=== PATIENT | female | born 1940 | race Caucasian/White ===

== ENCOUNTER → 2016-12-03 | Outpatient (CLI) | payer MEDICARE, OTHER ==
[~2016-12-03] MED LIST: ASPI1TAB24 PO; COUM2.5T11 PO; ESTR1TAB PO; GABA-282 PO; LOSA100T36 PO; MELO15TA4 PO; MOME50SP; MULT1TAB10 PO; PAME25CA PO; PANT40TA2 PO; PERC5TAB6 PO; SERT50TA PO; calcium OR; fish oil OR; proventil INH; restasis OR; vitamin B12 OR; vitamin c OR; vitamin d OR
== END ==
LOC: M WUC 13:57
PROVIDERS: ATTEND Physician Assistant
DX: R05 Cough (principal); R07.89 Other chest pain

== ENCOUNTER → 2017-04-03 | Outpatient (REF) | payer MEDICARE, OTHER ==
[~2017-04-03] MED LIST changes: +ASPI-161 PO; -ASPI1TAB24 PO; -COUM2.5T11 PO; +COUM2.5T17 PO; +PERC5TAB12 PO; -PERC5TAB6 PO
[2017-04-03 11:50] LABS: ALBUMIN 3.3 GM/DL (3.2-5.2); ALBUMIN/GLOBULIN RATIO 1.18 (1.00-1.93); ALKALINE PHOSPHATASE 101 U/L (45-117); ALT/SGPT 26 U/L (12-78); ANION GAP 8 MEQ/L (8-16); AST/SGOT 15 U/L (15-37); BILIRUBIN,TOTAL 0.2 MG/DL (0.2-1.0); BLOOD UREA NITROGEN 22 MG/DL (7-18); CALCIUM LEVEL 8.2 MG/DL (8.8-10.2); CARBON DIOXIDE LEVEL 28 MEQ/L (21-32); CHLORIDE LEVEL 105 MEQ/L (98-107); CHOLESTEROL LEVEL 163 MG/DL (<200); CREATININE FOR GFR 0.82 MG/DL (0.55-1.02); GLOMERULAR FILTRATION RATE > 60.0 (>39); GLUCOSE, FASTING 88 MG/DL (83-110); POTASSIUM SERUM 3.4 MEQ/L (3.5-5.1); SODIUM LEVEL 141 MEQ/L (136-145); TOTAL PROTEIN 6.1 GM/DL (6.4-8.2); TRIGLYCERIDES LEVEL 41 MG/DL (<150)
== END ==
LOC: M SFHCPLAZ 07:57
PROVIDERS: ATTEND Internal Medicine
DX: I10 Essential (primary) hypertension (principal); E78.00 Pure hypercholesterolemia, unspecified; R53.83 Other fatigue

== ENCOUNTER 2017-08-14 10:27 | Day surgery (SDC) | payer MEDICARE, OTHER ==
[~2017-08-14 10:27] MED LIST changes: -ASPI-161 PO; -COUM2.5T17 PO; -ESTR1TAB PO; -GABA-282 PO; -LOSA100T36 PO; -MELO15TA4 PO; +MIDAZOLAM INJ 2 MG/2 ML VIAL (J2250) As Ordered; -MOME50SP; -MULT1TAB10 PO; -PAME25CA PO; -PANT40TA2 PO; -PERC5TAB12 PO; +PHENYLEPHRINE 2.5% OPHTH SOL 2ML OD; +PHENYLEPHRINE HCL 10 % OPHTH. SOL 5ML OD; -SERT50TA PO; -calcium OR; +fentaNYL 100 MCG/2 ML INJECTION (J3010) As Ordered; -fish oil OR; -proventil INH; -restasis OR; -vitamin B12 OR; -vitamin c OR; -vitamin d OR
[2017-08-14] MEDS ORDERED: LIDOCAINE 3.5 % 1ML OPHTH TOPICAL GEL As Ordered (11:36)
[2017-08-14] MEDS ORDERED: PHENYLEPHRINE HCL 10 % OPHTH. SOL 5ML OD (12:00)
[2017-08-14] MEDS: CYCLOPENTOLATE 2% OPHTH SOLN 2ML BTL OD (12:02)
[2017-08-14] MEDS: OFLOXACIN 0.3 % (OCUFLOX) OPTH SOL 5ML OD (12:02)
[2017-08-14] MEDS: TROPICAMIDE 1% OPHTH SOLN 2ML OD (12:02)
[2017-08-14] MEDS: PHENYLEPHRINE 2.5% OPHTH SOL 2ML OD (12:03)
[2017-08-14] MEDS: LIDOCAINE 3.5 % 1ML OPHTH TOPICAL GEL OU (12:03)
[2017-08-14] MEDS: POVIDONE-IODINE 5% OPHTH PREP SOL 30ML As Ordered (13:04)
[2017-08-14] MEDS: BSS with VANC/TOB/EPI for EYE CASES IR (13:06)
[2017-08-14] MEDS: TRIAMCINOLONE PRES FR 40 MG/ML 1ML(TRIESENCE)(OR EYE ONLY)(J3300 PER 1MG) As Ordered (13:10)
[2017-08-14] MEDS: HEALON DUET (HEALON 10MG/ML 0.55ML & HEALON ENDOCOAT 30MG/ML 0.85ML) As Ordered (13:10)
[2017-08-14] MEDS: LIDOCAINE 1% SDV 5 ML VIAL As Ordered (13:11)
[2017-08-14] MEDS: MOXIFLOXACIN IN BSS 0.25MG/0.25ML INTRACAMERAL INJ (OR EYE ONLY)(J2280) As Ordered (13:11)
== END 2017-08-14 13:52 | disposition home or self-care (01) ==
LOC: M SDC 10:27
DX: H25.11 Age-related nuclear cataract, right eye (principal); I10 Essential (primary) hypertension; M79.7 Fibromyalgia; E78.00 Pure hypercholesterolemia, unspecified; M19.90 Unspecified osteoarthritis, unspecified site; R73.01 Impaired fasting glucose; M20.001 Unspecified deformity of right finger(s); K21.9 Gastro-esophageal reflux disease without esophagitis; R60.0 Localized edema; F41.9 Anxiety disorder, unspecified; G43.909 Migraine, unspecified, not intractable, without status migrainosus; J45.909 Unspecified asthma, uncomplicated; Z88.4 Allergy status to anesthetic agent; Z91.013 Allergy to seafood; Z91.048 Other nonmedicinal substance allergy status; Z79.899 Other long term (current) drug therapy; Z79.82 Long term (current) use of aspirin; Z86.010 Personal history of colon polyps; Z90.710 Acquired absence of both cervix and uterus; Z96.652 Presence of left artificial knee joint
CPT/HCPCS: 66984

== ENCOUNTER 2017-08-21 08:20 | Day surgery (SDC) | payer MEDICARE, OTHER ==
[~2017-08-21 08:20] MED LIST changes: +ACETAMINOPHEN 325 MG TAB PO; -MIDAZOLAM INJ 2 MG/2 ML VIAL (J2250) As Ordered; -PHENYLEPHRINE 2.5% OPHTH SOL 2ML OD; -PHENYLEPHRINE HCL 10 % OPHTH. SOL 5ML OD; +PHENYLEPHRINE HCL 10 % OPHTH. SOL 5ML XX; -fentaNYL 100 MCG/2 ML INJECTION (J3010) As Ordered
[2017-08-21] MEDS ORDERED: LIDOCAINE 1% MDV 20ML VIAL SQ (08:30)
[2017-08-21] MEDS: PHENYLEPHRINE 2.5% OPHTH SOL 2ML XX (08:58)
[2017-08-21] MEDS: LIDOCAINE 3.5 % 1ML OPHTH TOPICAL GEL OU (08:58)
[2017-08-21] MEDS: TROPICAMIDE 1% OPHTH SOLN 2ML XX (08:58)
[2017-08-21] MEDS: CYCLOPENTOLATE 2% OPHTH SOLN 2ML BTL XX (08:58)
[2017-08-21] MEDS: OFLOXACIN 0.3 % (OCUFLOX) OPTH SOL 5ML XX (08:59)
[2017-08-21] MEDS: TRIAMCINOLONE PRES FR 40 MG/ML 1ML(TRIESENCE)(OR EYE ONLY)(J3300 PER 1MG) As Ordered (10:07)
[2017-08-21] MEDS: MOXIFLOXACIN IN BSS 0.25MG/0.25ML INTRACAMERAL INJ (OR EYE ONLY)(J2280) As Ordered (10:08)
[2017-08-21] MEDS: BSS with VANC/TOB/EPI for EYE CASES IR (10:08)
[2017-08-21] MEDS: LIDOCAINE 1% SDV 5 ML VIAL As Ordered ×2 (10:08)
[2017-08-21] MEDS: POVIDONE-IODINE 5% OPHTH PREP SOL 30ML As Ordered (10:08)
[2017-08-21] MEDS: HEALON DUET (HEALON 10MG/ML 0.55ML & HEALON ENDOCOAT 30MG/ML 0.85ML) As Ordered (10:08)
[2017-08-21] MEDS ORDERED: MIDAZOLAM INJ 2 MG/2 ML VIAL (J2250) As Ordered (10:24)
[2017-08-21] MEDS ORDERED: fentaNYL 100 MCG/2 ML INJECTION (J3010) As Ordered (10:24)
[2017-08-21] MEDS: AcetaZOLAMIDE 500 MG ER CAP PO (10:40)
[2017-08-21] MEDS ORDERED: TRIMETHOBENZAMIDE 300 MG CAP PO (10:45)
[2017-08-21] MEDS ORDERED: ONDANSETRON 4MG/2ML VIAL (J2405) IV (10:45)
== END 2017-08-21 10:56 | disposition home or self-care (01) ==
LOC: M SDC 08:20
DX: H26.9 Unspecified cataract (principal); I10 Essential (primary) hypertension; M79.7 Fibromyalgia; E78.00 Pure hypercholesterolemia, unspecified; M15.0 Primary generalized (osteo)arthritis; K21.9 Gastro-esophageal reflux disease without esophagitis; R60.0 Localized edema; F41.9 Anxiety disorder, unspecified; G43.819 Other migraine, intractable, without status migrainosus; J45.909 Unspecified asthma, uncomplicated; Z88.4 Allergy status to anesthetic agent; Z91.013 Allergy to seafood; Z91.018 Allergy to other foods; Z79.899 Other long term (current) drug therapy; Z79.82 Long term (current) use of aspirin; Z90.710 Acquired absence of both cervix and uterus; Z96.652 Presence of left artificial knee joint
CPT/HCPCS: 66984

== ENCOUNTER → 2018-02-24 | Outpatient (CLI) | payer MEDICARE, OTHER | LOC: M RAD 10:16 | DX: Z12.31 Encounter for screening mammogram for malignant neoplasm of breast (principal) | CPT/HCPCS: 77067 ==

== ENCOUNTER → 2018-03-06 | Outpatient (REF) | payer MEDICARE, OTHER ==
[2018-03-06 16:27] LABS: CREATININE FOR GFR 0.79 MG/DL (0.55-1.30); GLOMERULAR FILTRATION RATE > 60.0 (>39)
== END ==
LOC: M LABDRAWP 15:39
DX: M51.27 Other intervertebral disc displacement, lumbosacral region (principal); M54.16 Radiculopathy, lumbar region; M46.1 Sacroiliitis, not elsewhere classified; M79.1 Myalgia; M96.1 Postlaminectomy syndrome, not elsewhere classified; M51.36 Other intervertebral disc degeneration, lumbar region
CPT/HCPCS: 82565

== ENCOUNTER → 2018-03-12 | Outpatient (REF) | payer MEDICARE, OTHER ==
[2018-03-12 15:41] LABS: APPEARANCE, URINE CLOUDY (CLEAR); BACTERIA, URINE AUTO 2+ (NEGATIVE); BILIRUBIN, URINE AUTO NEGATIVE (NEGATIVE); BLOOD, URINE BLOOD 2+ (NEGATIVE); COLOR, URINE YELLOW (YELLOW); GLUCOSE, URINE (UA) AUTO NEGATIVE (NEGATIVE); KETONE, URINE AUTO NEGATIVE (NEGATIVE); LEUKOCYTE ESTERASE, URINE AUTO 2+ (NEGATIVE); NITRITE, URINE AUTO NEGATIVE (NEGATIVE); PROTEIN, URINE AUTO NEGATIVE (NEGATIVE); RBC, URINE AUTO TNTC /HPF (0-3); SQUAMOUS EPITHELIAL CELL UR AU 0 /HPF (0-6); UROBILINOGEN, URINE AUTO 0.2 mg/dL (0.0-2.0); WBC, URINE AUTO TNTC /HPF (0-3); YEAST LIKE CELL URINE AUTO SMALL
== END ==
LOC: M SFHCPLAZ 10:50
DX: R30.0 Dysuria (principal)
CPT/HCPCS: 81001

== ENCOUNTER → 2018-04-01 | Outpatient (REF) | payer MEDICARE, OTHER ==
[2018-04-01 12:00] LABS: HEMATOCRIT 38.7 % (36.0-47.0); HEMOGLOBIN 12.2 g/dl (12.0-15.5); MEAN CORPUSCULAR HEMOGLOBIN 28.6 pg (27.0-33.0); MEAN CORPUSCULAR HGB CONC 31.5 g/dl (32.0-36.5); MEAN CORPUSCULAR VOLUME 90.6 fl (80.0-96.0); PLATELET COUNT, AUTOMATED 270 10^3/uL (150-450); RED BLOOD COUNT 4.27 10^6/uL (4.00-5.40); RED CELL DISTRIBUTION WIDTH 13.9 % (11.5-14.5); WHITE BLOOD COUNT 7.5 10^3/uL (4.0-10.0)
[2018-04-01 12:46] LABS: ALBUMIN 3.3 GM/DL (3.2-5.2); ALBUMIN/GLOBULIN RATIO 0.97 (1.00-1.93); ALKALINE PHOSPHATASE 107 U/L (45-117); ALT/SGPT 22 U/L (12-78); ANION GAP 9 MEQ/L (8-16); AST/SGOT 14 U/L (7-37); BILIRUBIN,TOTAL 0.4 MG/DL (0.2-1.0); BLOOD UREA NITROGEN 25 MG/DL (7-18); CALCIUM LEVEL 8.4 MG/DL (8.8-10.2); CARBON DIOXIDE LEVEL 28 MEQ/L (21-32); CHLORIDE LEVEL 102 MEQ/L (98-107); CHOLESTEROL LEVEL 201 MG/DL (<200); CREATININE FOR GFR 0.87 MG/DL (0.55-1.30); GLOMERULAR FILTRATION RATE > 60.0 (>39); GLUCOSE, FASTING 80 MG/DL (70-100); HDL CHOLESTEROL 124 MG/DL (>40); LDL CHOLESTEROL 68 MG/DL (<100); NON-HDL-C 77 MG/DL; POTASSIUM SERUM 4.2 MEQ/L (3.5-5.1); SODIUM LEVEL 139 MEQ/L (136-145); TOTAL PROTEIN 6.7 GM/DL (6.4-8.2); TRIGLYCERIDES LEVEL 45 MG/DL (<150)
== END ==
LOC: M SFHCPLAZ 08:14
DX: J30.9 Allergic rhinitis, unspecified (principal); I10 Essential (primary) hypertension; E78.00 Pure hypercholesterolemia, unspecified
CPT/HCPCS: 83735

== ENCOUNTER → 2018-04-09 | Outpatient (REF) | payer MEDICARE, OTHER ==
[2018-04-09 14:02] LABS: FOLATE > 24.0 NG/ML
[2018-04-09 14:32] LABS: AMORPHOUS SEDIMENT MODERATE (NEGATIVE); APPEARANCE, URINE TURBID (CLEAR); BACTERIA, URINE AUTO 3+ (NEGATIVE); BILIRUBIN, URINE AUTO NEGATIVE (NEGATIVE); BLOOD, URINE BLOOD 1+ (NEGATIVE); COLOR, URINE YELLOW (YELLOW); GLUCOSE, URINE (UA) AUTO NEGATIVE (NEGATIVE); KETONE, URINE AUTO NEGATIVE (NEGATIVE); LEUKOCYTE ESTERASE, URINE AUTO 3+ (NEGATIVE); NITRITE, URINE AUTO NEGATIVE (NEGATIVE); PROTEIN, URINE AUTO 1+ mg/dL (NEGATIVE); RBC, URINE AUTO 14 /HPF (0-3); SPECIFIC GRAVITY URINE AUTO 1.013 (1.002-1.035); SQUAMOUS EPITHELIAL CELL UR AU 9 /HPF (0-6); UROBILINOGEN, URINE AUTO 0.2 mg/dL (0.0-2.0); WBC, URINE AUTO TNTC /HPF (0-3)
== END ==
LOC: M SFHCPLAZ 11:03
DX: G62.9 Polyneuropathy, unspecified (principal); N39.0 Urinary tract infection, site not specified; Z23 Encounter for immunization
CPT/HCPCS: 82746

== ENCOUNTER → 2018-06-19 | Outpatient (REF) | payer MEDICARE, OTHER ==
[~2018-06-19] MED LIST changes: -ACETAMINOPHEN 325 MG TAB PO; +ASPI-161 PO; +COUM2.5T17 PO; +ESTR1TAB PO; +FLUTISP; +GABA-843 PO; +GABA600T4 PO; +LOSA100T50 PO; +LOSA100T8 PO; +MELO15TA28 PO; +MOME50SP; +MULT1TAB10 PO; +PAME25CA PO; +PANT40TA3 PO; +PERC5TAB12 PO; -PHENYLEPHRINE HCL 10 % OPHTH. SOL 5ML XX; +REST0.05 OU; +RETA0.5S OU; +SERT50TA PO; +TYLETAB15 PO; +calcium OR; +fish oil OR; +proventil INH; +restasis OR; +vitamin B12 OR; +vitamin c OR; +vitamin d OR
[2018-06-19 18:55] LABS: BASO % 0.2 % (0.0-1.0); EOS # 0.2 10^3/uL (0.0-0.50); EOS % 1.2 % (0.0-3.0); HEMATOCRIT 40.7 % (36.0-47.0); HEMOGLOBIN 13.5 g/dl (12.0-15.5); LYMPH # 1.5 10^3/uL (1.5-4.5); LYMPH % 9.5 % (24.0-44.0); MEAN CORPUSCULAR HEMOGLOBIN 28.7 pg (27.0-33.0); MEAN CORPUSCULAR HGB CONC 33.2 g/dl (32.0-36.5); MEAN CORPUSCULAR VOLUME 86.6 fl (80.0-96.0); MONO % 6.7 % (0.0-5.0); NEUTROPHILS # 12.5 10^3/uL (1.8-7.7); NEUTROPHILS % 82.1 % (36.0-66.0); PLATELET COUNT, AUTOMATED 382 10^3/uL (150-450); WHITE BLOOD COUNT 15.3 10^3/uL (4.0-10.0)
[2018-06-19 19:32] LABS: ALT/SGPT 45 U/L (12-78); BILIRUBIN,TOTAL 0.4 MG/DL (0.2-1.0); BLOOD UREA NITROGEN 41 MG/DL (7-18); CALCIUM LEVEL 8.6 MG/DL (8.8-10.2); CARBON DIOXIDE LEVEL 27 MEQ/L (21-32); CHLORIDE LEVEL 99 MEQ/L (98-107); CREATININE FOR GFR 0.94 MG/DL (0.55-1.30); GLOMERULAR FILTRATION RATE > 60.0 (>39); GLUCOSE, FASTING 80 MG/DL (70-100); POTASSIUM SERUM 3.1 MEQ/L (3.5-5.1); SODIUM LEVEL 140 MEQ/L (136-145); TOTAL PROTEIN 6.9 GM/DL (6.4-8.2)
== END ==
LOC: M SFHCPLAZ 16:07
PROVIDERS: ATTEND Physician Assistant Medical
DX: E86.0 Dehydration (principal)
CPT/HCPCS: 36415; 80053; 85025; 86140; G0463

== ENCOUNTER → 2018-06-20 | Outpatient (REF) | payer MEDICARE, OTHER | LOC: M SFHCPLAZ 16:11 | PROVIDERS: ATTEND Physician Assistant Medical | DX: E86.0 Dehydration (principal) ==

== ENCOUNTER → 2018-07-04 | Outpatient (REF) | payer MEDICARE, OTHER ==
[2018-07-04 17:16] LABS: BASO % 0.2 % (0.0-1.0); EOS # 0.1 10^3/uL (0.0-0.50); EOS % 0.9 % (0.0-3.0); HEMATOCRIT 37.6 % (36.0-47.0); HEMOGLOBIN 12.3 g/dl (12.0-15.5); LYMPH # 1.1 10^3/uL (1.5-4.5); LYMPH % 7.5 % (24.0-44.0); MEAN CORPUSCULAR HEMOGLOBIN 29.1 pg (27.0-33.0); MEAN CORPUSCULAR HGB CONC 32.7 g/dl (32.0-36.5); MEAN CORPUSCULAR VOLUME 88.9 fl (80.0-96.0); MONO % 6.9 % (0.0-5.0); NEUTROPHILS # 12.2 10^3/uL (1.8-7.7); NEUTROPHILS % 84.2 % (36.0-66.0); PLATELET COUNT, AUTOMATED 325 10^3/uL (150-450); RED BLOOD COUNT 4.23 10^6/uL (4.00-5.40); WHITE BLOOD COUNT 14.4 10^3/uL (4.0-10.0)
[2018-07-04 17:25] LABS: BLOOD UREA NITROGEN 22 MG/DL (7-18); CALCIUM LEVEL 8.8 MG/DL (8.8-10.2); CARBON DIOXIDE LEVEL 29 MEQ/L (21-32); CHLORIDE LEVEL 103 MEQ/L (98-107); CREATININE FOR GFR 1.12 MG/DL (0.55-1.30); GLOMERULAR FILTRATION RATE 50.4 (>39); GLUCOSE, FASTING 97 MG/DL (70-100); POTASSIUM SERUM 3.1 MEQ/L (3.5-5.1); RHEUMATOID FACTOR QUANT < 10.0 IU/ML (<15.0); SODIUM LEVEL 140 MEQ/L (136-145); THYROID STIMULATING HORMONE 0.515 uIU/ML (0.358-3.740)
[2018-07-04 17:50] LABS: ERYTHROCYTE SEDIMENTATION RATE 46 mm/hr (0-30)
== END ==
LOC: M SFHCPLAZ 15:32
PROVIDERS: ATTEND Internal Medicine
DX: I10 Essential (primary) hypertension (principal); R79.82 Elevated C-reactive protein (CRP); R53.83 Other fatigue; Z87.898 Personal history of other specified conditions
CPT/HCPCS: 36415; 80048; 84443; 85025; 85652; 86140; 86200; 86431; G0463

== ENCOUNTER 2018-08-08 20:13 | Emergency (ER) | payer MEDICARE, OTHER ==
[~2018-08-08] VITALS: Ht 149.9 cm; Wt 68.2 kg
[2018-08-08 21:11] LABS: BASO # 0.1 10^3/uL (0.0-0.2); BASO % 0.5 % (0.0-1.0); EOS # 0.3 10^3/uL (0.0-0.50); EOS % 2.3 % (0.0-3.0); HEMATOCRIT 34.1 % (36.0-47.0); HEMOGLOBIN 11.3 g/dl (12.0-15.5); LYMPH % 18.7 % (24.0-44.0); MEAN CORPUSCULAR HEMOGLOBIN 29.5 pg (27.0-33.0); MEAN CORPUSCULAR HGB CONC 33.1 g/dl (32.0-36.5); MONO # 0.8 10^3/uL (0.0-0.8); MONO % 7.6 % (0.0-5.0); NEUTROPHILS # 7.7 10^3/uL (1.8-7.7); NEUTROPHILS % 70.6 % (36.0-66.0); PLATELET COUNT, AUTOMATED 193 10^3/uL (150-450); RED BLOOD COUNT 3.83 10^6/uL (4.00-5.40); WHITE BLOOD COUNT 10.9 10^3/uL (4.0-10.0)
[2018-08-08] MEDS ORDERED: ALBU17IN2 INH (21:26)
[2018-08-08] MEDS ORDERED: FISH7.5C PO (21:26)
[2018-08-08 21:52] LABS: ALBUMIN 3.3 GM/DL (3.2-5.2); ALT/SGPT 20 U/L (12-78); BILIRUBIN,DIRECT < 0.1 MG/DL (0.0-0.2); BILIRUBIN,TOTAL 0.3 MG/DL (0.2-1.0); BLOOD UREA NITROGEN 18 MG/DL (7-18); CALCIUM LEVEL 8.5 MG/DL (8.8-10.2); CARBON DIOXIDE LEVEL 25 MEQ/L (21-32); CHLORIDE LEVEL 103 MEQ/L (98-107); CPK CREATINE PHOSPHOKINASE 106 U/L (26-192); CREATININE FOR GFR 1.05 MG/DL (0.55-1.30); GLOMERULAR FILTRATION RATE 54.2 (>39); GLUCOSE, FASTING 111 MG/DL (70-100); MB/CK RELATIVE INDEX 1.51 (< OR =4); POTASSIUM SERUM 4.5 MEQ/L (3.5-5.1); SODIUM LEVEL 140 MEQ/L (136-145); TOTAL PROTEIN 6.6 GM/DL (6.4-8.2); TROPONIN I < 0.02 NG/ML (< 0.10)
[2018-08-08] MEDS ORDERED: amLODIPine 5 MG TAB PO ONE (22:30)
[2018-08-08] MEDS ORDERED: KEFL500C17 PO (23:42)
[2018-08-08] MEDS ORDERED: CEPHALEXIN 500 MG CAP PO ONE (23:45)
[2018-08-08 23:48] VITALS: BP 176/72
[2018-08-09] MEDS ORDERED: KEFL500C17 PO (00:09)
--- NOTE | 2018-08-09 05:52 | ECGEPIP ---
Stationary ECG Study [facility] - ED Test Date: 2018-08-08 Pat Name: DEVON GARSIA Department: Room: - Gender: F [employer]er: MIRIAM : 1940 Requested By: BRAULIO Rosado Order Number: [id number] Reading MD: Ryder Celis Measurements Intervals [place] Rate: 78 P: 78 MS: 163 QRS: 3 QRSD: 81 T: 50 QT: 373 QTc: 427 Interpretive Statements SINUS RHYTHM NSTTW ABNORMALITIES SIMILAR TO 03/27/16 Electronically Signed On 08-09-2018 5:51:33 EST by Ryder Celis
--- NOTE | 2018-08-09 08:23 | REP ---
Portable chest, 09:30 p.m., single AP view, patient sitting: Comparison 12/03/2016. There are no focal infiltrates or pleural effusions. The interstitium is mildly coarsened, particularly along the medial right upper lobe, unchanged, compatible with scarring. Cardiac size is normal for positioning. The malcolm, mediastinum, skeletal structures are unremarkable. Impression: Chronic findings as described. No acute cardiopulmonary findings. Electronically Signed by Rigo Rendon MD 08/09/2018 08:16 A
== END 2018-08-09 00:10 | disposition home or self-care (01) ==
LOC: M ED 20:13
DX: N39.0 Urinary tract infection, site not specified (principal); I10 Essential (primary) hypertension; M19.90 Unspecified osteoarthritis, unspecified site; M79.7 Fibromyalgia; J45.909 Unspecified asthma, uncomplicated; Z87.440 Personal history of urinary (tract) infections; Z91.013 Allergy to seafood; Z88.4 Allergy status to anesthetic agent; Z88.8 Allergy status to other drugs, medicaments and biological substances; Z79.899 Other long term (current) drug therapy; Z79.82 Long term (current) use of aspirin; Z79.890 Hormone replacement therapy

== ENCOUNTER → 2018-08-18 | Outpatient (REF) | payer MEDICARE, OTHER ==
[~2018-08-18] MED LIST changes: +ALBU17IN2 INH; +FISH7.5C PO; +KEFL500C17 PO
[2018-08-18 15:42] LABS: BLOOD UREA NITROGEN 15 MG/DL (7-18); C REACTIVE PROTEIN QUANTITATIV 0.37 MG/DL (0.00-0.30); CALCIUM LEVEL 8.5 MG/DL (8.8-10.2); CARBON DIOXIDE LEVEL 30 MEQ/L (21-32); CHLORIDE LEVEL 103 MEQ/L (98-107); CREATININE FOR GFR 0.71 MG/DL (0.55-1.30); GLOMERULAR FILTRATION RATE > 60.0 (>39); GLUCOSE, FASTING 74 MG/DL (70-100); POTASSIUM SERUM 3.8 MEQ/L (3.5-5.1); SODIUM LEVEL 141 MEQ/L (136-145)
[2018-08-18 19:01] LABS: APPEARANCE, URINE CLOUDY (CLEAR); BACTERIA, URINE AUTO 1+ (NEGATIVE); BILIRUBIN, URINE AUTO NEGATIVE (NEGATIVE); BLOOD, URINE BLOOD 1+ (NEGATIVE); COLOR, URINE YELLOW (YELLOW); GLUCOSE, URINE (UA) AUTO NEGATIVE (NEGATIVE); KETONE, URINE AUTO TRACE mg/dL (NEGATIVE); LEUKOCYTE ESTERASE, URINE AUTO 3+ (NEGATIVE); MUCUS, URINE SMALL (NEGATIVE); NITRITE, URINE AUTO NEGATIVE (NEGATIVE); PROTEIN, URINE AUTO NEGATIVE (NEGATIVE); RBC, URINE AUTO 9 /HPF (0-3); SQUAMOUS EPITHELIAL CELL UR AU 9 /HPF (0-6); UROBILINOGEN, URINE AUTO 0.2 mg/dL (0.0-2.0); WBC, URINE AUTO 119 /HPF (0-3)
== END ==
LOC: M SFHCPLAZ 13:56
PROVIDERS: ATTEND Internal Medicine
DX: I10 Essential (primary) hypertension (principal); R79.82 Elevated C-reactive protein (CRP); R68.89 Other general symptoms and signs; R53.83 Other fatigue; Z87.898 Personal history of other specified conditions; Z87.440 Personal history of urinary (tract) infections

== ENCOUNTER → 2018-11-19 | Outpatient (REF) | payer MEDICARE, OTHER ==
[~2018-11-19] MED LIST changes: +SERT-141 PO; -SERT50TA PO
[2018-11-19 17:54] LABS: HEMATOCRIT 25.6 % (36.0-47.0); HEMOGLOBIN 7.6 g/dl (12.0-15.5); MEAN CORPUSCULAR HEMOGLOBIN 24.8 pg (27.0-33.0); MEAN CORPUSCULAR HGB CONC 29.7 g/dl (32.0-36.5); MEAN CORPUSCULAR VOLUME 83.4 fl (80.0-96.0); PLATELET COUNT, AUTOMATED 228 10^3/uL (150-450); RED BLOOD COUNT 3.07 10^6/uL (4.00-5.40); WHITE BLOOD COUNT 8.7 10^3/uL (4.0-10.0)
[2018-11-19 18:19] LABS: BLOOD UREA NITROGEN 14 MG/DL (7-18); CALCIUM LEVEL 8.5 MG/DL (8.8-10.2); CARBON DIOXIDE LEVEL 27 MEQ/L (21-32); CHLORIDE LEVEL 107 MEQ/L (98-107); CREATININE FOR GFR 0.72 MG/DL (0.55-1.30); GLOMERULAR FILTRATION RATE > 60.0 (>39); GLUCOSE, FASTING 94 MG/DL (70-100); NT-PRO BNP 3928 PG/ML (<450); POTASSIUM SERUM 3.8 MEQ/L (3.5-5.1); SODIUM LEVEL 143 MEQ/L (136-145)
[2018-11-19 19:42] LABS: APPEARANCE, URINE CLEAR (CLEAR); BACTERIA, URINE AUTO 1+ (NEGATIVE); BILIRUBIN, URINE AUTO NEGATIVE (NEGATIVE); BLOOD, URINE BLOOD 1+ (NEGATIVE); COLOR, URINE YELLOW (YELLOW); GLUCOSE, URINE (UA) AUTO NEGATIVE (NEGATIVE); KETONE, URINE AUTO NEGATIVE (NEGATIVE); LEUKOCYTE ESTERASE, URINE AUTO TRACE (NEGATIVE); MUCUS, URINE SMALL (NEGATIVE); NITRITE, URINE AUTO NEGATIVE (NEGATIVE); PROTEIN, URINE AUTO NEGATIVE (NEGATIVE); RBC, URINE AUTO 7 /HPF (0-3); SPECIFIC GRAVITY URINE AUTO 1.019 (1.002-1.035); SQUAMOUS EPITHELIAL CELL UR AU 2 /HPF (0-6); WBC, URINE AUTO 11 /HPF (0-3)
== END ==
LOC: M SFHCPLAZ 14:15
PROVIDERS: ATTEND Internal Medicine
DX: R30.0 Dysuria (principal); R06.02 Shortness of breath
CPT/HCPCS: 36415; 80048; 81001; 83880; 85027; 87088; 87186; 93005; G0463

== ENCOUNTER → 2018-12-09 | Outpatient (REF) | payer MEDICARE, OTHER ==
[2018-12-09 19:57] LABS: APPEARANCE, URINE CLEAR (CLEAR); BACTERIA, URINE AUTO NEGATIVE (NEGATIVE); BILIRUBIN, URINE AUTO NEGATIVE (NEGATIVE); BLOOD, URINE BLOOD NEGATIVE (NEGATIVE); COLOR, URINE YELLOW (YELLOW); GLUCOSE, URINE (UA) AUTO NEGATIVE (NEGATIVE); KETONE, URINE AUTO TRACE mg/dL (NEGATIVE); LEUKOCYTE ESTERASE, URINE AUTO TRACE (NEGATIVE); MUCUS, URINE SMALL (NEGATIVE); NITRITE, URINE AUTO NEGATIVE (NEGATIVE); PROTEIN, URINE AUTO NEGATIVE (NEGATIVE); RBC, URINE AUTO 3 /HPF (0-3); SPECIFIC GRAVITY URINE AUTO 1.019 (1.002-1.035); SQUAMOUS EPITHELIAL CELL UR AU 5 /HPF (0-6); WBC, URINE AUTO 7 /HPF (0-3)
== END ==
LOC: M LAB REF 17:13
PROVIDERS: ATTEND Obstetrics & Gynecology
DX: R33.8 Other retention of urine (principal); N39.41 Urge incontinence; N32.81 Overactive bladder

== ENCOUNTER → 2019-01-14 | Outpatient (REF) | payer MEDICARE, OTHER ==
[2019-01-14 13:02] LABS: HEMATOCRIT 40.4 % (36.0-47.0); HEMOGLOBIN 12.4 g/dl (12.0-15.5); MEAN CORPUSCULAR HEMOGLOBIN 25.8 pg (27.0-33.0); MEAN CORPUSCULAR HGB CONC 30.7 g/dl (32.0-36.5); MEAN CORPUSCULAR VOLUME 84.2 fl (80.0-96.0); PLATELET COUNT, AUTOMATED 256 10^3/uL (150-450); WHITE BLOOD COUNT 6.4 10^3/uL (4.0-10.0)
[2019-01-14 13:16] LABS: ALBUMIN 3.6 GM/DL (3.2-5.2); ALT/SGPT 18 U/L (12-78); BILIRUBIN,TOTAL 0.3 MG/DL (0.2-1.0); BLOOD UREA NITROGEN 18 MG/DL (7-18); CALCIUM LEVEL 9.2 MG/DL (8.8-10.2); CARBON DIOXIDE LEVEL 31 MEQ/L (21-32); CHLORIDE LEVEL 103 MEQ/L (98-107); CREATININE FOR GFR 0.66 MG/DL (0.55-1.30); GLOMERULAR FILTRATION RATE > 60.0 (>39); GLUCOSE, FASTING 94 MG/DL (70-100); MAGNESIUM LEVEL 1.9 MG/DL (1.8-2.4); POTASSIUM SERUM 3.7 MEQ/L (3.5-5.1); SODIUM LEVEL 142 MEQ/L (136-145); TOTAL PROTEIN 6.9 GM/DL (6.4-8.2)
== END ==
LOC: M SFHCPLAZ 10:05
PROVIDERS: ATTEND Internal Medicine
DX: D50.0 Iron deficiency anemia secondary to blood loss (chronic) (principal); I48.0 Paroxysmal atrial fibrillation

== ENCOUNTER → 2019-02-10 | Outpatient (CLI) | payer MEDICARE, OTHER ==
[~2019-02-10] MED LIST changes: +FERR325T3 PO; +FURO40TA2 PO; +MULTCAP PO; +MYRB25TA PO; +TOPR25TA PO; +VITAD1000T PO
[2019-02-10 13:50] LABS: GLOMERULAR FILTRATION RATE > 60.0 (>39)
[2019-02-11 07:03] LABS: BLOOD UREA NITROGEN 15 MG/DL (7-18)
== END ==
LOC: M LAB 12:21
PROVIDERS: ATTEND Obstetrics & Gynecology
DX: N82.0 Vesicovaginal fistula (principal)

== ENCOUNTER 2019-02-12 10:37 | Day surgery (SDC) | payer MEDICARE, OTHER ==
[~2019-02-12] VITALS: Ht 149.9 cm; Wt 81.2 kg
[~2019-02-12 10:37] MED LIST changes: -ALBU17IN2 INH; +CHOL100029 PO; +LIDOCAINE 1% MDV 20ML VIAL SQ PRN; +LR 1,000 ML IV ONE; +PROV108A INH; -VITAD1000T PO; +ceFAZolin SOD 2 GM in IV 1 EA IV ONE
[2019-02-12] MEDS ORDERED: fentaNYL 100 MCG/2 ML INJECTION (J3010) As Ordered ONE ×2 (13:45→14:20)
[2019-02-12] MEDS ORDERED: LIDOCAINE 2% INJ 100 MG/5 ML SDV (FOR ANES.) As Ordered ONE (13:45)
[2019-02-12] MEDS ORDERED: propofoL 200 MG/20 ML VIAL As Ordered ONE (13:45)
[2019-02-12] MEDS ORDERED: dexameTHASONE 4 MG/ML 1ML VIAL (J1100) As Ordered ONE (13:45)
[2019-02-12] MEDS ORDERED: MIDAZOLAM INJ 2 MG/2 ML VIAL (J2250) As Ordered ONE (13:45)
[2019-02-12] MEDS ORDERED: ONDANSETRON 4MG/2ML VIAL (J2405) As Ordered ONE (13:45)
[2019-02-12] MEDS ORDERED: ROCURONIUM BROMIDE 50 MG/5 ML VIAL As Ordered ONE (13:45)
[2019-02-12] MEDS ORDERED: BOTULINUM INJ 100 UNITS (J0585) As Ordered ONE (15:36)
[2019-02-12] MEDS ORDERED: PERCOCET 5MG/325MG TAB As Ordered ONE (17:59)
[2019-02-12] MEDS: PERCOCET 5MG/325MG TAB PO PRN ×2 (18:00→18:40)
[2019-02-12] MEDS ORDERED: ONDANSETRON 4MG/2ML VIAL (J2405) IV PRN (18:15)
[2019-02-12] MEDS ORDERED: LR 1,000 ML IV SCH ×2 (18:15)
[2019-02-12] MEDS ORDERED: MEPERIDINE INJ 25 MG/ML VIAL (J2175) IV PRN (18:15)
[2019-02-12] MEDS ORDERED: IBUPROFEN 600 MG TAB PO PRN (18:15)
[2019-02-12] MEDS ORDERED: METOCLOPRAMIDE INJ 10MG/2ML VIAL (J2765) IV PRN (18:15)
[2019-02-12] MEDS ORDERED: fentaNYL 100 MCG/2 ML INJECTION (J3010) IV PRN (18:15)
[2019-02-12 20:40] VITALS: BP 152/65
--- NOTE | 2019-02-13 16:16 | RO ---
DATE OF PROCEDURE: 02/12/2019 PREPROCEDURE DIAGNOSIS: Vesicovaginal fistula. POSTPROCEDURE DIAGNOSIS: Vesicovaginal fistula. PROCEDURE: Vaginal repair of vesicovaginal fistula with cystourethroscopy. SURGEON: Ani Mujica MD BLANCHING MACHINE OPERATOR: None. ANESTHESIA: LMA. DESCRIPTION OF PROCEDURE: Daxa was brought to the operating room where sufficient general anesthesia by LMA was induced, and she was positioned, prepped and draped in the usual fashion and as known preoperatively, the patient has a large external prolapse and some laxity at the genital hiatus. Much of this prolapse is posterior, certainly the greater percentage of it, but also she has anterior prolapse as well. We started off with a cystourethroscopy locating the fistulous tract by cysto and confirming that it was not in the trigone and was not disrupting either ureter. It is slightly to the patient's left as expected preoperatively but not far enough to be disruptive to the ureter. The urethral meatus on the left side was lateral to the fistula. We did then carefully identify the fistula vaginally as expected, and we were able to place a Savanna through and take a picture that we had the right tract for the fistula. We were also able to see with some dissection and removal of the granulation tissue in the fistulous tract, we were then able to mobilize and see the bladder epithelium, which we closed with a multilayer closure, starting first with #3-0 Monocryl and moving on to #3-0 Vicryl and then after three layers, we did cystoscopy again and confirmed the watertight seal at this closure. And then we did multilayer closure of the disrupted area of the vaginal wall, layering #2-0 Vicryl in multiple layers in pursestring stitches to bring down the defect that had been created by removal of the fistulous tract. Then closed also the vaginal epithelium and then the procedure was ended with the placement of a Avelar. Estimated blood loss for the procedure: About 50 mL. There was some persistent oozing as we dissected out the fistulous tract, but no arterial bleeding. Fluid replacement was crystalloid. Complications: None. Condition and Disposition: Daxa tolerated the procedure well and was recovering in the recovery room in good condition.
== END 2019-02-12 20:50 | disposition home or self-care (01) ==
LOC: M SDC 10:37
PROVIDERS: ATTEND Obstetrics & Gynecology
DX: N82.0 Vesicovaginal fistula (principal); I10 Essential (primary) hypertension; K21.9 Gastro-esophageal reflux disease without esophagitis; M79.7 Fibromyalgia; G43.909 Migraine, unspecified, not intractable, without status migrainosus; J45.909 Unspecified asthma, uncomplicated; Z79.82 Long term (current) use of aspirin; Z79.899 Other long term (current) drug therapy; Z91.013 Allergy to seafood; Z88.4 Allergy status to anesthetic agent
CPT/HCPCS: 52000; 57320; J0690; J1100; J2250; J2405; J3010

== ENCOUNTER → 2019-03-05 | Outpatient (CLI) | payer MEDICARE, OTHER ==
[~2019-03-05] MED LIST changes: +CYSTO-CONRAY II 17.2% 250ML VIAL (Q9958) As Ordered ONE; -LIDOCAINE 1% MDV 20ML VIAL SQ PRN; -LR 1,000 ML IV ONE; -ceFAZolin SOD 2 GM in IV 1 EA IV ONE
--- NOTE | 2019-03-05 16:38 | REP ---
CYSTOGRAM The procedure was performed under the direct supervision of Dr. Shankar. The images were reviewed with Dr. Shankar. The patient arrived in the department with an existing indwelling Avelar catheter. 250 ml of Cysto-Conray II was instilled into the bladder in a retrograde flow. 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 Because of the contrast emptying out through the fistula, the bladder lumen is unable to be evaluated due to lack of distension. 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 Because of the contrast emptying out through the fistula, the bladder lumen is unable to be evaluated due to lack of distension. 0.5 minutes of fluoroscopy time was utilized for this procedure. Electronically Signed by PRINCE Garsia 03/05/2019 03:38 P Electronically Signed by Rigo Shankar MD 03/05/2019 04:28 P
== END ==
LOC: M RAD 12:45
PROVIDERS: ATTEND Obstetrics & Gynecology
DX: N82.0 Vesicovaginal fistula (principal)
CPT/HCPCS: 74430; Q9958

== ENCOUNTER → 2019-04-07 | Outpatient (REF) | payer MEDICARE, OTHER ==
[~2019-04-07] MED LIST changes: -CYSTO-CONRAY II 17.2% 250ML VIAL (Q9958) As Ordered ONE
[2019-04-07 11:12] LABS: HEMATOCRIT 38.1 % (36.0-47.0); HEMOGLOBIN 12.3 g/dl (12.0-15.5); MEAN CORPUSCULAR HEMOGLOBIN 28.2 pg (27.0-33.0); MEAN CORPUSCULAR HGB CONC 32.3 g/dl (32.0-36.5); MEAN CORPUSCULAR VOLUME 87.4 fl (80.0-96.0); PLATELET COUNT, AUTOMATED 227 10^3/uL (150-450); RED BLOOD COUNT 4.36 10^6/uL (4.00-5.40); WHITE BLOOD COUNT 6.6 10^3/uL (4.0-10.0)
[2019-04-07 11:19] LABS: ALBUMIN 3.3 GM/DL (3.2-5.2); ALT/SGPT 19 U/L (12-78); BILIRUBIN,TOTAL 0.4 MG/DL (0.2-1.0); BLOOD UREA NITROGEN 16 MG/DL (7-18); CALCIUM LEVEL 8.9 MG/DL (8.8-10.2); CARBON DIOXIDE LEVEL 30 MEQ/L (21-32); CHLORIDE LEVEL 102 MEQ/L (98-107); CHOLESTEROL LEVEL 226 MG/DL (<200); CHOLESTEROL RISK RATIO 1.867 (<5); CREATININE FOR GFR 0.68 MG/DL (0.55-1.30); GLOMERULAR FILTRATION RATE > 60.0 (>39); GLUCOSE, FASTING 87 MG/DL (70-100); HDL CHOLESTEROL 121 MG/DL (>40); LDL CHOLESTEROL 87 MG/DL (<100); MAGNESIUM LEVEL 1.6 MG/DL (1.8-2.4); NON-HDL-C 105 MG/DL; POTASSIUM SERUM 4.2 MEQ/L (3.5-5.1); SODIUM LEVEL 141 MEQ/L (136-145); TOTAL PROTEIN 6.5 GM/DL (6.4-8.2); TRIGLYCERIDES LEVEL 88 MG/DL (<150)
== END ==
LOC: M SFHCPLAZ 08:49
PROVIDERS: ATTEND Internal Medicine
DX: Z86.010 Personal history of colon polyps (principal); I10 Essential (primary) hypertension; E78.00 Pure hypercholesterolemia, unspecified

== ENCOUNTER → 2019-06-05 | Outpatient (CLI) | payer MEDICARE, OTHER ==
[~2019-06-05] MED LIST changes: +ISOVUE-370 76% 100ML VIAL (Q9967) As Ordered ONE
--- NOTE | 2019-06-05 15:50 | REP ---
CT ABDOMEN AND PELVIS WITH AND WITHOUT IV CONTRAST (CT UROGRAM AND CYSTOGRAM): CT abdomen and pelvis performed prior to and following the intravenous administration of 100 mL of Isovue-370. In addition, Avelar catheter was placed and diluted iodinated contrast was instilled into the urinary bladder. Approximately 300 ml, prior to intravenous contrast administration, with pre IV contrast images obtained through the pelvis. No infiltrate is seen in the visualized lung bases. Liver demonstrates no mass. Several folds are seen in the gallbladder. The spleen is unremarkable in appearance. Mild adrenal gland thickening is unchanged since prior study f 02/10/2019. Pancreas demonstrates no mass. There is a small cyst in each kidney without hydroureteronephrosis. There is no abdominal aortic aneurysm with moderate atherosclerotic calcification. No adenopathy is seen. There is no free air or free fluid. There is no bowel wall thickening. The appendix is normal. Urinary bladder is mildly distended with contrast material. There is a vesicovaginal fistula seen just to the left of midline, communicating between the posterior wall of the bladder and the adjacent vagina. This is at the superior end of the vaginal stump in this patient with a history of hysterectomy. Contrast is seen extending into the vagina. No pelvic mass is seen. There is sigmoid diverticulosis with a few diverticula of the left colon with no diverticulitis. There is a small hiatal hernia. There is evidence of prior fusion surgery in the lower lumbar spine with diffuse degenerative changes of the lumbar spine. IMPRESSION: Vesicovaginal fistula visualized at the superior margin of the vaginal stump just to the left of midline. No free air or free fluid. Small hiatal hernia. Sigmoid diverticulosis. Small cyst is seen in each kidney without hydronephrosis. Electronically Signed by Rigo Shankar MD 06/05/2019 04:57 P
== END ==
LOC: M RAD 12:57
DX: N82.0 Vesicovaginal fistula (principal); K44.9 Diaphragmatic hernia without obstruction or gangrene; K57.30 Diverticulosis of large intestine without perforation or abscess without bleeding; N28.1 Cyst of kidney, acquired
CPT/HCPCS: 74178; Q9967

== ENCOUNTER → 2019-07-15 | Outpatient (CLI) | payer MEDICARE, OTHER ==
[~2019-07-15] MED LIST changes: +CYSTO-CONRAY II 17.2% 250ML VIAL (Q9958) As Ordered ONE; -ISOVUE-370 76% 100ML VIAL (Q9967) As Ordered ONE
--- NOTE | 2019-07-15 13:42 | REP ---
Examination Requested: Cystogram Reason For Exam: Gross hematuria Comparison is 03/05/2019. On the prior study there was contrast extravasation from the bladder into the vaginal vault, compatible with a vesicovaginal fistula. The procedure was performed by PRINCE Nunez, under the direct supervision of Dr. Rendon. The images were reviewed with Dr. Rendon. The patient arrived to the department with an existing indwelling Avelar catheter for this exam. 150 ml of Cysto-Conray II was instilled into the bladder in a retrograde flow. The bladder is normal in position and contour. There is no evidence of contrast extravasation or ureteral reflux. There are multiple bladder diverticula bilaterally. Impression: 1. Multiple bladder diverticula bilateral. 2. No extravasation visualized. 0.2 minutes of fluoroscopy time was utilized for this procedure. Some fluoroscopic images are performed with last image hold technology. These images require no additional radiation. Reviewed by PRINCE Daniels 07/15/2019 11:17 A Electronically Signed by Rigo Rendon MD 07/15/2019 01:33 P
== END ==
LOC: M RADPRO 08:03
PROVIDERS: ATTEND Urology
DX: N32.3 Diverticulum of bladder (principal); N82.0 Vesicovaginal fistula; N81.5 Vaginal enterocele; Z88.4 Allergy status to anesthetic agent; Z88.8 Allergy status to other drugs, medicaments and biological substances; Z91.013 Allergy to seafood
CPT/HCPCS: 51610; 74430; Q9958

== ENCOUNTER → 2019-12-16 | Outpatient (REF) | payer MEDICARE, OTHER ==
[~2019-12-16] MED LIST changes: -CYSTO-CONRAY II 17.2% 250ML VIAL (Q9958) As Ordered ONE
[2019-12-16 15:31] LABS: APPEARANCE, URINE HAZY (CLEAR); BACTERIA, URINE AUTO 1+ (NEGATIVE); BILIRUBIN, URINE AUTO NEGATIVE (NEGATIVE); BLOOD, URINE BLOOD 1+ (NEGATIVE); COLOR, URINE YELLOW (YELLOW); GLUCOSE, URINE (UA) AUTO NEGATIVE (NEGATIVE); KETONE, URINE AUTO TRACE mg/dL (NEGATIVE); LEUKOCYTE ESTERASE, URINE AUTO 1+ (NEGATIVE); MUCUS, URINE LARGE (NEGATIVE); NITRITE, URINE AUTO POSITIVE (NEGATIVE); PROTEIN, URINE AUTO NEGATIVE (NEGATIVE); RBC, URINE AUTO 11 /HPF (0-3); SPECIFIC GRAVITY URINE AUTO 1.019 (1.002-1.035); SQUAMOUS EPITHELIAL CELL UR AU 1 /HPF (0-6); WBC, URINE AUTO 31 /HPF (0-3)
== END ==
LOC: M SFHCPLAZ 15:05
PROVIDERS: ATTEND Internal Medicine
DX: R30.0 Dysuria (principal)

== ENCOUNTER → 2020-04-05 | Outpatient (REF) | payer MEDICARE, OTHER ==
[~2020-04-05] MED LIST changes: +PANT40TA29 PO; -PANT40TA3 PO
[2020-04-05 14:32] LABS: HEMATOCRIT 42.3 % (36.0-47.0); HEMOGLOBIN 13.3 g/dl (12.0-15.5); MEAN CORPUSCULAR HEMOGLOBIN 29.2 pg (27.0-33.0); MEAN CORPUSCULAR HGB CONC 31.4 g/dl (32.0-36.5); MEAN CORPUSCULAR VOLUME 92.8 fl (80.0-96.0); PLATELET COUNT, AUTOMATED 223 10^3/uL (150-450); RED BLOOD COUNT 4.56 10^6/uL (4.00-5.40); WHITE BLOOD COUNT 7.4 10^3/uL (4.0-10.0)
[2020-04-05 15:06] LABS: ALBUMIN 3.5 GM/DL (3.2-5.2); ALT/SGPT 17 U/L (12-78); BILIRUBIN,TOTAL 0.3 MG/DL (0.2-1.0); BLOOD UREA NITROGEN 22 MG/DL (7-18); CARBON DIOXIDE LEVEL 30 MEQ/L (21-32); CHLORIDE LEVEL 100 MEQ/L (98-107); GLOMERULAR FILTRATION RATE > 60.0 (>39); GLUCOSE, FASTING 86 MG/DL (70-100); MAGNESIUM LEVEL 1.8 MG/DL (1.8-2.4); POTASSIUM SERUM 3.7 MEQ/L (3.5-5.1); SODIUM LEVEL 139 MEQ/L (136-145); TOTAL PROTEIN 6.6 GM/DL (6.4-8.2)
== END ==
LOC: M PLALAB 09:21
PROVIDERS: ATTEND Internal Medicine
DX: D50.0 Iron deficiency anemia secondary to blood loss (chronic) (principal); I10 Essential (primary) hypertension; F34.1 Dysthymic disorder

== ENCOUNTER → 2020-10-31 | Outpatient (REF) | payer MEDICARE, OTHER ==
[~2020-10-31] MED LIST changes: +GABA-282 PO; -GABA-843 PO
[2020-10-31 15:38] LABS: BASO # 0.1 10^3/uL (0.0-0.2); BASO % 0.9 % (0.0-1.0); EOS # 0.4 10^3/uL (0.0-0.5); HEMATOCRIT 43.4 % (36.0-47.0); LYMPH # 1.5 10^3/uL (1.5-5.0); LYMPH % 22.1 % (24.0-44.0); MEAN CORPUSCULAR HEMOGLOBIN 29.5 pg (27.0-33.0); MEAN CORPUSCULAR HGB CONC 32.3 g/dl (32.0-36.5); MEAN CORPUSCULAR VOLUME 91.4 fl (80.0-96.0); MONO # 0.5 10^3/uL (0.0-0.8); MONO % 8.2 % (2.0-8.0); NEUTROPHILS # 4.1 10^3/uL (1.5-8.5); NEUTROPHILS % 62.5 % (36.0-66.0); PLATELET COUNT, AUTOMATED 194 10^3/uL (150-450); RED BLOOD COUNT 4.75 10^6/uL (4.00-5.40); WHITE BLOOD COUNT 6.6 10^3/uL (4.0-10.0)
[2020-10-31 16:04] LABS: ALBUMIN 4.2 GM/DL (3.2-5.2); ALT/SGPT 42 U/L (12-78); BILIRUBIN,TOTAL 0.4 MG/DL (0.2-1.0); BLOOD UREA NITROGEN 21 MG/DL (7-18); CARBON DIOXIDE LEVEL 32 MEQ/L (21-32); CHLORIDE LEVEL 103 MEQ/L (98-107); CHOLESTEROL LEVEL 229 MG/DL (<200); CHOLESTEROL RISK RATIO 2.544 (<5); CREATININE FOR GFR 0.87 MG/DL (0.55-1.30); GLOMERULAR FILTRATION RATE > 60.0 (>39); GLUCOSE, FASTING 86 MG/DL (70-100); HDL CHOLESTEROL 90 MG/DL (>40); LDL CHOLESTEROL 122 MG/DL (<100); NON-HDL-C 139 MG/DL; POTASSIUM SERUM 4.2 MEQ/L (3.5-5.1); SODIUM LEVEL 141 MEQ/L (136-145); TOTAL PROTEIN 7.1 GM/DL (6.4-8.2); TRIGLYCERIDES LEVEL 87 MG/DL (<150)
[2020-10-31 16:08] LABS: VITAMIN B12 LEVEL 896 PG/ML
[2020-10-31 16:09] LABS: FOLATE > 24.0 NG/ML
== END ==
LOC: M SFHCPLAZ 11:42
PROVIDERS: ATTEND Internal Medicine
DX: D50.0 Iron deficiency anemia secondary to blood loss (chronic) (principal); I10 Essential (primary) hypertension; E78.00 Pure hypercholesterolemia, unspecified; M79.7 Fibromyalgia; R53.83 Other fatigue; Z11.59 Encounter for screening for other viral diseases
CPT/HCPCS: 36415; 80053; 80061; 82607; 82746; 83735; 85025; G0463; G0472

== ENCOUNTER → 2021-03-14 | Outpatient (CLI) | payer MEDICARE, OTHER ==
--- NOTE | 2021-03-14 13:50 | REPMRS ---
Patient History The patient states she had a clinical breast exam in March 2020 Patient is postmenopausal. Family history of prostate cancer under age 50 in paternal uncle. Took hormonal contraceptives for 10 years. Took estrogen for 30 years. Patient states no breast complaints today. Patient has signed MRS History Sheet. Digital Woman Screen Mammo: March 14, 2021 - Exam #: [id number] Bilateral CC and MLO view(s) were taken. Technologist: Marina Orellana, Technologist Prior study comparison: February 24, 2018, bilateral digital mammo screening bilat, performed at [facility]. March 01, 2016, bilateral digital mammo screening bilat, performed at [facility]. FINDINGS: There are scattered fibroglandular densities. Screening. Digital screening (2D) mammography was performed bilaterally in the CC and MLO projections. Additionally, breast tomosynthesis (3D mammography) was performed bilaterally in the CC and MLO projections. Todays exam was compared to the prior exam/exams. By history, the patient has no complaints of a palpable breast abnormality or other significant breast complaints. The breasts are unchanged in size and shape. There are no eloy-soft tissue densities or spiculated masses. There is no internal architectural distortion. Once again, stable benign appearing calcifications are seen.There are no suspicious eloy-calcific clusters. Skin thickening or nipple retraction is not present. IMPRESSION: BI-RADS Category 2- Benign Findings. There is no evidence of malignant alteration of the breasts. Followup examination recommended in one year. The Volpara volumetric breast density category is B, there are scattered areas of fibroglandular densities. This mammogram was read [facility],an FDA approved computer aided detection system for mammography. The lifetime Tyrer-Cuzick score is 2 % Negative x-ray reports should not delay surgical consultation if a dominant or clinically suspicious mass is present. Not all breast cancers can be identified by mammography. Therefore, we recommend that you continue to perform regular breast self-examination and physical examination and then promptly contact your physician of any concerns or changes. Adenosis and dense breasts may obscure an underlying neoplasm. Assessment: BI-RADS/ACR category 2 mammogram. Benign Findings. Recommendation Routine screening mammogram of both breasts in 1 year. Electronically Signed By: Slim Grimaldo DO 03/14/21 [id number]
== END ==
LOC: M WHC 13:12
PROVIDERS: ATTEND Internal Medicine
DX: Z12.31 Encounter for screening mammogram for malignant neoplasm of breast (principal)

== ENCOUNTER → 2021-05-01 | Outpatient (CLI) | payer MEDICARE, OTHER ==
[2021-05-01 14:21] LABS: BASO # 0.1 10^3/uL (0.0-0.2); BASO % 0.8 % (0.0-1.0); EOS # 0.5 10^3/uL (0.0-0.5); EOS % 6.8 % (0.0-3.0); HEMATOCRIT 43.8 % (36.0-47.0); HEMOGLOBIN 14.1 g/dl (12.0-15.5); LYMPH # 1.6 10^3/uL (1.5-5.0); LYMPH % 20.8 % (24.0-44.0); MEAN CORPUSCULAR HEMOGLOBIN 29.6 pg (27.0-33.0); MEAN CORPUSCULAR HGB CONC 32.2 g/dl (32.0-36.5); MEAN CORPUSCULAR VOLUME 91.8 fl (80.0-96.0); MONO # 0.6 10^3/uL (0.0-0.8); MONO % 8.2 % (2.0-8.0); NEUTROPHILS # 4.8 10^3/uL (1.5-8.5); PLATELET COUNT, AUTOMATED 239 10^3/uL (150-450); RED BLOOD COUNT 4.77 10^6/uL (4.00-5.40); WHITE BLOOD COUNT 7.6 10^3/uL (4.0-10.0)
[2021-05-01 14:54] LABS: ALT/SGPT 32 U/L (12-78); BILIRUBIN,TOTAL 0.3 MG/DL (0.2-1.0); BLOOD UREA NITROGEN 17 MG/DL (7-18); CALCIUM LEVEL 10.3 MG/DL (8.8-10.2); CARBON DIOXIDE LEVEL 34 MEQ/L (21-32); CHLORIDE LEVEL 101 MEQ/L (98-107); CHOLESTEROL LEVEL 237 MG/DL (<200); CHOLESTEROL RISK RATIO 2.521 (<5); CREATININE FOR GFR 0.81 MG/DL (0.55-1.30); GLOMERULAR FILTRATION RATE > 60.0 (>39); GLUCOSE, FASTING 97 MG/DL (70-100); HDL CHOLESTEROL 94 MG/DL (>40); LDL CHOLESTEROL 122 MG/DL (<100); MAGNESIUM LEVEL 1.9 MG/DL (1.8-2.4); NON-HDL-C 143 MG/DL; POTASSIUM SERUM 4.2 MEQ/L (3.5-5.1); SODIUM LEVEL 141 MEQ/L (136-145); TOTAL PROTEIN 7.2 GM/DL (6.4-8.2); TRIGLYCERIDES LEVEL 105 MG/DL (<150)
== END ==
LOC: M PLALAB 10:29
PROVIDERS: ATTEND Internal Medicine
DX: E78.00 Pure hypercholesterolemia, unspecified (principal); I10 Essential (primary) hypertension; D50.0 Iron deficiency anemia secondary to blood loss (chronic); Z86.010 Personal history of colon polyps

== ENCOUNTER → 2021-11-07 | Outpatient (CLI) | payer MEDICARE, OTHER ==
[~2021-11-07] MED LIST changes: +LOSA100T45 PO; -LOSA100T50 PO; -MOME50SP; +NASO50SP3
[2021-11-07 13:28] LABS: ALBUMIN 3.9 GM/DL (3.2-5.2); ALT/SGPT 38 U/L (12-78); BILIRUBIN,TOTAL 0.5 MG/DL (0.2-1.0); BLOOD UREA NITROGEN 19 MG/DL (7-18); CALCIUM LEVEL 9.4 MG/DL (8.8-10.2); CARBON DIOXIDE LEVEL 33 MEQ/L (21-32); CHLORIDE LEVEL 100 MEQ/L (98-107); CHOLESTEROL LEVEL 208 MG/DL (<200); CHOLESTEROL RISK RATIO 2.212 (<5); GLOMERULAR FILTRATION RATE > 60.0 (>39); GLUCOSE, FASTING 99 MG/DL (70-100); HDL CHOLESTEROL 94 MG/DL (>40); LDL CHOLESTEROL 100 MG/DL (<100); MAGNESIUM LEVEL 1.8 MG/DL (1.8-2.4); NON-HDL-C 114 MG/DL; POTASSIUM SERUM 3.5 MEQ/L (3.5-5.1); SODIUM LEVEL 139 MEQ/L (136-145); TRIGLYCERIDES LEVEL 69 MG/DL (<150)
[2021-11-07 13:42] LABS: HEMOGLOBIN A1c 5.9 %
== END ==
LOC: M PLALAB 09:39
PROVIDERS: ATTEND Internal Medicine
DX: I10 Essential (primary) hypertension (principal)

== ENCOUNTER → 2025-02-26 | Outpatient (REF) | payer MEDICARE, OTHER ==
[~2025-02-26] MED LIST changes: +ALBU6.7H6 INH; -ASPI-161 PO; +ASPI-615 PO; +FISH10005 PO; -FISH7.5C PO; +GABA-1172 PO; +GABA-1490 PO; -GABA-282 PO; -GABA600T4 PO; -LOSA100T45 PO; +LOSA100T46 PO; -PROV108A INH
== END ==
LOC: M LAB REF 13:39
PROVIDERS: ATTEND Internal Medicine
DX: N39.0 Urinary tract infection, site not specified (principal)